=== PATIENT | female | born 1960 | race African-American/Black ===

== ENCOUNTER → 2017-02-27 | Outpatient (CLI) | payer MEDICARE ==
[2016-06-12 11:00] VITALS: BP 109/68
[~2017-02-27] MED LIST: BACL10TA PO; CYCL10TA2 PO; DEXA4TAB PO; FOLI1TAB16 PO; GABA-586 PO; HYDR4TAB13 PO; IBUP200C PO; IBUP25PO MC; IPRA3AMP NEB; LIDO700A4 TD; MORP100T30 PO; MORP30TA83 PO; MORP60TA37 PO; MULT-234 PO; ONDA8TAB9 PO; OXYB10TA7 PO; OXYC-244 PO; PROC10TA57 PO; SENN1TAB21 PO; VARE0.5T PO; ZOLP10TA PO
--- NOTE | 2017-02-27 16:27 | RAD ---
Indication bilateral leg edema. Grayscale color Doppler and spectral imaging was performed. The examination was targeted to the veins of the lower extremities. Bilaterally the common femoral, femoral and popliteal vessels demonstrate normal flow compressibility and augmentation. No thrombus is seen. The visualized calf veins appeared unremarkable. IMPRESSION: Negative bilateral lower extremity venous analysis for DVT
== END | disposition home or self-care (01) ==
LOC: US 15:12
PROVIDERS: ATTEND Internal Medicine Hematology & Oncology
DX: R60.0 Localized edema (principal)
CPT/HCPCS: 93970

== ENCOUNTER → 2017-05-15 | Outpatient (CLI) | payer MEDICARE ==
[2016-06-12 11:00] VITALS: BP 109/68
[~2017-05-15] MED LIST changes: +GADOBUTROL 7.5 MMOL/7.5 ML VIAL IV ONE; -HYDR4TAB13 PO; +HYDR4TAB45 PO; -OXYC-244 PO; +OXYC-327 PO
--- NOTE | 2017-05-15 12:17 | RAD ---
EXAM: MRI BRAIN WITH AND WITHOUT CONTRAST. HISTORY: Headaches, lung cancer. TECHNIQUE: Magnetic resonance images of the brain were obtained before and after the intravenous administration of 5 mL Gadavist. COMPARISON: April 14, 2014. FINDINGS: There is a tiny focus of enhancement within the left frontal white matter on series 13 image 24. It measures only 2 mm and is not clearly reproduced on the coronal series. There is no surrounding vasogenic edema. There is no diffusion restriction. A few foci of white matter T2/FLAIR hyperintensity are nonspecific but are consistent with minimal chronic microangiopathic change. The ventricles are normal in size and position. The sella is incidentally partially empty. The paranasal sinuses are clear. The orbits are unremarkable. The temporal bones are unremarkable. The calvarium demonstrates no suspicious lesions. IMPRESSION: 1. A tiny 2 mm focus of enhancement in the left frontal white matter is not detectable on other series and may be an artifact. Follow-up is recommended in 3 months to exclude a tiny metastasis. Electronically signed by: Digna Lopez MD (05/15/2017 12:14 PM) [id number]
--- NOTE | 2017-05-15 12:24 | RAD ---
EXAM: MRI LUMBAR SPINE WITH AND WITHOUT CONTRAST. HISTORY: Low back pain. Lung cancer. TECHNIQUE: Magnetic resonance images of the lumbar spine were obtained before and after the intravenous administration of 5 mL Gadavist. COMPARISON: August 09, 2014. FINDINGS: Alignment is normal. No fractures are identified. Intervertebral disc heights are maintained. The conus is at L2 and appears normal. There are no enhancing parenchymal lesions. There are minimal posterior disc bulges from L2 through S1. There is mild bilateral neural foraminal narrowing from L4 through S1 on the right and from L3 through S1 on the left. IMPRESSION: 1. No evidence of metastatic disease. 2. Minimal degenerative changes for patient age. Mild atrophy and from L3 through S1 as above. Electronically signed by: Digna Lopez MD (05/15/2017 12:21 PM) [id number]
== END | disposition home or self-care (01) ==
LOC: MRI 09:04
PROVIDERS: ATTEND Internal Medicine Hematology & Oncology
DX: C34.2 Malignant neoplasm of middle lobe, bronchus or lung (principal); R51 Headache
CPT/HCPCS: 70553; 72158; A9585

== ENCOUNTER → 2017-05-17 | Outpatient (CLI) | payer MEDICARE ==
[2016-06-12 11:00] VITALS: BP 109/68
[~2017-05-17] MED LIST changes: -GADOBUTROL 7.5 MMOL/7.5 ML VIAL IV ONE
--- NOTE | 2017-05-17 13:57 | RAD ---
Indication staging lung cancer. Whole body bone scan imaging was performed. 25 mCi of technetium labeled MDP was administered. Note is made of a previous bone scan 10/23/2016. The radiopharmaceutical is symmetrical is distributed throughout the visualized bony skeleton. No abnormal uptake, to suggest metastatic disease to the bones is seen. The appearance is unchanged compared to the previous exam. Normal activity is seen in the kidneys and urinary bladder. IMPRESSION: Negative study for osseous metastatic disease
== END ==
LOC: NM 08:00
PROVIDERS: ATTEND Internal Medicine Hematology & Oncology
DX: C34.2 Malignant neoplasm of middle lobe, bronchus or lung (principal); J44.9 Chronic obstructive pulmonary disease, unspecified; C79.89 Secondary malignant neoplasm of other specified sites; F17.210 Nicotine dependence, cigarettes, uncomplicated
CPT/HCPCS: 78306; 96374; A9503